=== PATIENT | male | born 1965 | race Hispanic/Latino ===

== ENCOUNTER → 2024-01-18 | Outpatient (REF) | payer OTHER ==
[~2024-01-18] MED LIST: ATORVASTATIN CA10 MG PO; LEVOTHYROXINE50 MCG PO; NAPROXEN250 MG PO; PANTOPRAZOLE SO40 MG PO
== END ==
LOC: US 07:55
PROVIDERS: ATTEND Nurse Practitioner
DX: R10.13 Epigastric pain (principal)
CPT/HCPCS: 76700; 76856